=== PATIENT | male | born 1995 | race Caucasian/White ===

== ENCOUNTER 2024-08-17 10:48 | Emergency (ER) | payer OTHER, SELFPAY ==
[2024-08-17 10:54] VITALS: BP 134/75; PULSE 102; RESP 20; TEMP 37.5; O2SAT 96
--- NOTE | 2024-08-17 11:08 | ED.URI ---
HPI - URI/Sore Throat General Chief Complaint: Upper Respiratory Infection Stated Complaint: cough/sob Source: patient Mode of arrival: ambulatory Limitations: no limitations History of Present Illness HPI Narrative: 29-year-old male presented for complaint of a cough for 3 days. States it feels like it is hard to breathe stating he cannot take full deep breath without feeling short of breath. also reports mild nasal congestion and drainage. Denies Chest pain, palpitations, wheezing, nausea vomiting diarrhea, fevers or chills. Not taking anything for symptoms. Related Data Allergies Allergy/AdvReac Type Severity Reaction Status Date / Time No Known Allergies Allergy Verified 08/17/24 10:58 Review of Systems Review of Systems: per HPI All systems reviewed & are unremarkable except as noted in HPI and below PMFSH Family History Family History (Updated 02/11/14 @ 07:13 by DOCTOR UNKNOWN) Sibling Hypertension Grandparent No family history of malignant neoplasm Mother No family history of diabetes mellitus Social History Social History Smoking status: Never smoker Second hand tobacco smoke exposure: No Alcohol intake: current Comments At time of signature, I have reviewed and agree with nursing past medical, surgical, social and family history unless otherwise noted. Please see nursing chart for further information. There is no relevant family history pertinent to the presenting complaint Exam Narrative: GENERAL: Well-appearing, in no acute distress. EYES: EOMI. No redness or drainage. Conjunctivae normal. ENT: Mucous membranes pink and moist. No rhinorrhea. right TM normal; Left TM erythematous, bulging and intact; canal not erythematous, no drainage. Throat normal. Uvula midline. NECK: Normal AROM. Supple. CHEST: No respiratory distress. lungs clear to all moralez. HEART: Regular rate and rhythm. No murmur appreciated. SKIN: Warm, dry, no rash. Capillary refill normal. Normal skin turgor. NEURO: Alert and oriented x3. Gait steady. PSYCH: Normal affect. Course Course Emergency Course: Patient is aware of diagnosis, understands and agrees to treatment plan. Anticipatory guidance given. Patient agrees to follow-up as directed and is aware of reasons to seek care at the emergency department. Portions of this record may have been created with voice recognition software Level of Care: Express Care Visit Vital Signs Vital signs: Vital Signs Temperature 99.5 F 08/17/24 10:54 Pulse Rate 102 H 08/17/24 10:54 Respiratory Rate 20 03/03/25 10:54 Blood Pressure 134/75 08/17/24 10:54 Pulse Oximetry 96 08/17/24 10:54 Oxygen Delivery Room Air 08/17/24 10:54 Temperature 99.5 F 08/17/24 10:54 Pulse Rate 102 H 08/17/24 10:54 Respiratory Rate 20 08/17/24 10:54 Blood Pressure 134/75 08/17/24 10:54 Pulse Oximetry 96 08/17/24 10:54 Oxygen Delivery Room Air 08/17/24 10:54 MDM - URI/Sore Throat MDM Narrative Medical decision making narrative: Discussed physical exam findings consistent with bronchitis and left AOM. declined viral testing. Advised supportive measures and signs/symptoms to go to the ER. Pt is appropriate for outpt treatment and f/u. Differential Diagnosis Differential diagnosis: Likely upper respiratory infection, otitis media, sinusitis, viral infection, bronchitis, influenza and pharyngitis Discharge Plan Discharge Clinical Impression: Bronchitis Otitis media Qualifiers: Otitis media type: suppurative Chronicity: acute Laterality: left Recurrence: non-recurrent Spontaneous tympanic membrane rupture: without spontaneous rupture Qualified Code(s): H66.002 - Acute suppurative otitis media without spontaneous rupture of ear drum, left ear Patient Disposition: Home, Self-Care Condition: Stable Instructions: Antibiotic Form, Ear Infection (ED), Acute Bronchitis (ED) Additional Instructions: Acute bronchitis can be contagious because it is usually caused by infection with a virus or bacteria. It is usually for a few days but you can be contagious for up to one week. Avoid crowds until you do not have a fever and symptoms are improved Take medication as directed. Antibiotic as directed for left ear infection Recommend: Flonase spray and Zyrtec (or Claritin/Vivien) over the counter Cough syrup may cause drowsiness; avoid driving or take it at night time. Tylenol 1000mg every 8 hours as needed for pain Symptomatic treatment includes: rest, fluids, and increase humidity of the air at home. Follow up with your primary care provider as needed in 1 week Go to the ER for worsening symptoms or concerns Patient Language: [place]itanian Prescriptions: New prednisone 50 mg tablet 50 mg PO DAILY Qty: 5 0RF albuterol sulfate 90 mcg/actuation HFA aerosol inhaler 2 inh inhalation QID PRN (Reason: shortness of breath or wheezing) Qty: 8.5 0RF amoxicillin-pot clavulanate 875-125 mg tablet 1 tablet PO Q12H 7 Days Qty: 14 0RF Follow-up/Referrals: Hunter,BRO Millan [Primary Care Provider] - Stand Alone Forms: Work/School Release IP
== END 2024-08-17 11:21 | disposition home or self-care (01) ==
PROVIDERS: Emergency Provider Nurse Practitioner Family; PCP Physician Assistant
DX: J40 Bronchitis, not specified as acute or chronic (principal); H66.002 Acute suppurative otitis media without spontaneous rupture of ear drum, left ear
CPT/HCPCS: 99213; G0463